=== PATIENT | female | born 1940 | race Caucasian/White ===

== ENCOUNTER 2020-02-16 16:17 | Emergency (ER) | payer MEDICARE ==
[~2020-02-16] VITALS: Ht 157.5 cm; Wt 70.4 kg
[2020-02-16] VITALS (13 sets, daily range): BP systolic 99–127; BP diastolic 40–69
--- NOTE | 2020-02-16 16:55 | PHYS DOC ---
Past History Past Medical History: Anemia, Arthritis, CHF, CVA, GI Bleed, Heart Disease, TIA (JOAO SIEGEL DO) Adult General Chief Complaint Chief Complaint: ABNORMAL LABS HPI HPI Patient is a 80-year-old female who presents for abnormal labs. Patient has kn own history of GI bleeding, currently on Eliquis for lower extremity DVT. Nonetheless, saw her primary care physician earlier today and had labs drawn as she has had episodes of GI bleed in the past with most recent EGD/colonoscopy with surgical upper endoscopy performed approximately 1 month ago. She reports having numerous blood transfusions. Nonetheless, patient's hemoglobin today when drawn at 12 PM was 5.3. This obviously concerned outpatient provider and patient was contacted, notified of his results and told to proceed directly to our ER for evaluation and intervention. Patient feels weak, mildly lightheaded, and is more pale than usual. She is not positive what her blood type is but she is amenable to blood transfusion at this time (JOAO SIEGEL DO) Review of Systems Review of Systems Fourteen body systems of review of systems have been reviewed. See HPI for pertinent positives and negative responses, other craig all other systems are negative, non-pertinent or non-contributory (JOAO SIEGEL DO) Physical Exam Physical Exam Constitutional: Well developed, well nourished, no acute distress, non-toxic appearance. HENT: Normocephalic, atraumatic, bilateral external ears normal, oropharynx moist, no oral exudates, nose normal. Eyes: PERRLA, EOMI, conjunctiva normal, no discharge. Neck: Normal range of motion, no tenderness, supple, no stridor. Cardiovascular: Heart rate regular, sinus rhythm, no murmurs rubs or gallops Lungs & Thorax: Bilateral breath sounds clear to auscultation Abdomen: Bowel sounds normal, soft, no tenderness, no masses, no pulsatile masses. Nonsurgical abdomen, no peritoneal signs Skin: Cool, dry, no erythema, no rash. Pale Back: No tenderness, no CVA tenderness. Extremities: No tenderness, no cyanosis, no clubbing, ROM intact, no edema. Neurologic: Alert and oriented X 3, grossly normal motor & sensory function, no focal deficits noted. Psychologic: Affect normal, judgement normal, mood normal. (JOAO SIEGEL DO) Current Patient Data Lab Results Laboratory Tests Test 11/12/20 17:12 White Blood Count 5.4 x10^3/uL (4.0-11.0) Red Blood Count 1.94 x10^6/uL (3.50-5.40) Hemoglobin 6.1 g/dL (12.0-15.5) Hematocrit 20.2 % (36.0-47.0) Mean Corpuscular Volume 104 fL (79-100) Mean Corpuscular Hemoglobin 31 pg (25-35) Mean Corpuscular Hemoglobin Concent 30 g/dL (31-37) Red Cell Distribution Width 21.4 % (11.5-14.5) Platelet Count 225 x10^3/uL (140-400) (JOAO SIEGEL DO) EKG EKG [] (JOAO SIEGEL DO) Radiology/Procedures Radiology/Procedures [] (JOAO SIEGEL DO) Heart Score Risk Factors: Risk Factors: DM, Current or recent (<one month) smoker, HTN, HLP, family history of CAD, obesity. Risk Scores: Risk Factors: DM, Current or recent (<one month) smoker, HTN, HLP, family hi story of CAD, obesity. (JOAO SIEGEL DO) Course & Med Decision Making Course & Med Decision Making Pertinent Labs and Imaging studies reviewed. (See chart for details) [] (JOAO SIEGEL DO) Course & Med Decision Making I performed a rectal exam and there was no obvious bleeding. Results pending on the stool occult. Blood has been ordered for the patient. If she does not have active bleeding she would prefer to go home. I believe this is reasonable since she has close follow-up. We will see what happens. The patient's stool occult was negative. She has gotten 1 unit of blood. She would prefer to go home. I believe this is reasonable with close follow-up and repeat labs tomorr ow. Patient stable for discharge at this time. If any new symptoms or other concerning symptoms develop, the patient will return to the emergency room. (ARTHUR IZQUIERDO DO) Dragon Disclaimer Dragon Disclaimer This electronic medical record was generated, in whole or in part, using a voice recognition dictation system. (JOAO SIEGEL DO) Departure Departure: Impression: Primary Impression: Anemia Disposition: 01 DC HOME SELF CARE/HOMELESS Condition: IMPROVED Referrals: JANET PARDO MD (PCP) Patient Instructions: Iron Deficiency Anemia JOAO SIEGEL DO Feb 16, 2020 16:55 ARTHUR IZQUIERDO DO Feb 16, 2020 18:54
[2020-02-16] MEDS ORDERED: ACETAMINOPHEN 325 MG TABLET PO PRN (17:00)
[2020-02-16 17:28] LABS: HEMATOCRIT 20.2 % (36.0-47.0); RED BLOOD COUNT 1.94 x10^6/uL (3.50-5.40); RED CELL DISTRIBUTION WIDTH 21.4 % (11.5-14.5); WHITE BLOOD COUNT 5.4 x10^3/uL (4.0-11.0)
[2020-02-16 17:30] LABS: HEMOGLOBIN 6.1 g/dL (12.0-15.5)
[2020-02-16 20:14] LABS: FECAL OB PT NEGATIVE (NEG)
== END 2020-02-16 23:30 | disposition home or self-care (01) ==
LOC: ER 16:17
DX: D64.9 Anemia, unspecified (principal); M19.90 Unspecified osteoarthritis, unspecified site; I50.9 Heart failure, unspecified; Z86.73 Personal history of transient ischemic attack (TIA), and cerebral infarction without residual deficits; Z86.2 Personal history of diseases of the blood and blood-forming organs and certain disorders involving the immune mechanism; Z79.01 Long term (current) use of anticoagulants
CPT/HCPCS: 36415; 36430; 82274; 85027; 86850; 86900; 86901; 86920; 99285; P9016

== ENCOUNTER 2021-08-10 17:12 | Inpatient (IN) | payer MEDICARE, OTHER ==
[~2021-08-10] VITALS: Ht 157.5 cm; Wt 70.1 kg
[2021-08-10] MEDS ORDERED: ONDANSETRON PF 4 MG/2 ML VIAL. ONE (17:59)
[2021-08-10] MEDS ORDERED: ONDANSETRON PF 4 MG/2 ML VIAL. IVP ONE (18:45)
[2021-08-10 18:55] LABS: GASTRIC OB PAT POSITIVE (NEG)
[2021-08-10 19:13] LABS: INFLUENZA A PATIENT NEGATIVE (NEGATIVE); INFLUENZA B PATIENT NEGATIVE (NEGATIVE)
--- NOTE | 2021-08-10 19:44 | PHYS DOC ---
Past History Past Medical History: Anemia, Arthritis, CHF, CVA, GI Bleed, Heart Disease, TIA Additional Past Medical Histor: RA,OSTEOARTHRITIS L HIP,SLEEP APNEA,ANTIPHOSPHOLIPID SYN,MITRAL VALV,GIble (TAMMIE MURPHY APRN) Past Surgical History: No Surgical History (TAMMIE MURPHY APRN) Alcohol Use: None (TAMMIE MURPHY APRN) General Adult EDM: Chief Complaint: ABNORMAL LABS HPI: HPI: Patient is a 81-year-old female who presents with abnormal labs. Patient reports fatigue for the last 2 weeks. Patient states that she has been vomiting blood today and decrease in her appetite . Patient had a blood draw earlier and hemoglobin was 6.0. Patient has a history of GI bleed. Patient is also currently on Eliquis for portal vein thrombosis. Patient had to have a blood transfusion in the past. Patient is normally seen by GI doctors at [facility]. History of CHF, hypertension, hyperlipidemia, anemia, GI bleed. (TAMMIE MURPHY APRN) Review of Systems: Review of Systems: ROS At least 10 ROS systems have been reviewed and are negative except as documented in the HPI. General: Negative except as outlined in HPI above. Skin: Negative except as outlined in HPI above. HEENT: Negative except as outlined in HPI above. Neck: Negative except as outlined in HPI above. Respiratory: Negative except as outlined in HPI above.. Cardiovascular: Negative except as outlined in HPI above. Abdomen: Negative except as outlined in HPI above. : Negative except as outlined in HPI above. Back/MSK: Negative except as outlined in HPI above. Neuro: Negative except as outlined in HPI above. Psych: Negative except as outlined in HPI above. (TAMMIE MURPHY APRN) Current Medications: Current Meds: Current Medications Medications (Trade) Dose Ordered Sig/Татьяна Start Time Stop Time Status Last Admin Dose Admin Ondansetron HCl (Zofran) 4 mg 1X ONCE 08/10/21 18:45 08/10/21 18:46 DC 08/10/21 18:45 4 MG (TAMMIE MURPHY APRN) Allergies: Allergies: Allergies Coded Allergies Type Severity Reaction Last Updated Verified Penicillins Allergy Unknown 02/16/20 Yes Sulfa (Sulfonamide Antibiotics) Allergy Unknown 02/16/20 Yes hydroxychloroquine Allergy Unknown 02/16/20 Yes (TAMMIE MURPHY APRN) Physical Exam: PE: Constitutional: Well developed, well nourished, no acute distress, non-toxic appearance. [] HENT: Normocephalic, atraumatic, bilateral external ears normal, oropharynx moist, no oral exudates, nose normal. [] Eyes: PERRLA, EOMI, conjunctiva normal, no discharge. [] Neck: Normal range of motion, no tenderness, supple, no stridor. [] Cardiovascular:Heart rate regular rhythm, no murmur [] Lungs & Thorax: Bilateral breath sounds clear to auscultation [] Abdomen: Bowel sounds normal, soft, no tenderness, no masses, no pulsatile masses. [] Skin: Warm, dry, no erythema, no rash. [] Back: No tenderness, no CVA tenderness. [] Extremities: No tenderness, no cyanosis, no clubbing, ROM intact, no edema. [] Neurologic: Alert and oriented X 3, normal motor function, normal sensory function, no focal deficits noted. [] Psychologic: Affect normal, judgement normal, mood normal. [] (TAMMIE MURPHY APRN) Current Patient Data: Labs: Laboratory Tests Test 08/10/21 18:00 Gastric Fluid Occult Blood Positive (NEG) Vital Signs: Vital Signs Date Time Temp Pulse Resp B/P (MAP) Pulse Ox O2 Delivery O2 Flow Rate FiO2 08/10/21 17:12 98.4 109 24 124/68 (86) 82 Room Air (TAMMIE MURPHY APRN) EKG: EKG: [] (TAMMIE MURPHY APRN) Radiology/Procedures: Radiology/Procedures: [] (TAMMIE MURPHY APRN) Heart Score: C/O Chest Pain: No Risk Factors: Risk Factors: DM, Current or recent (<one month) smoker, HTN, HLP, family history of CAD, obesity. Risk Scores: Score 0 - 3: 2.5% MACE over next 6 weeks - Discharge Home Score 4 - 6: 20.3% MACE over next 6 weeks - Admit for Clinical Observation Score 7 - 10: 72.7% MACE over next 6 weeks - Early Invasive Strategies (TAMMIE MURPHY APRN) Course & Med Decision Making: Course & Med Decision Making Pertinent Labs and Imaging studies reviewed. (See chart for details) [] 81-year-old female presents with abnormal labs. Patient's had fatigue, decrease in appetite the last 2 weeks. Patient started vomiting blood this morning. Patient is currently on Eliquis for portal vein thrombosis. Patient GI doctor is through [facility]. Patient stating that she does not want to be transferred to [facility]. Patient does not want any testing. Patient is only wanting to get blood transfusion for treatment. Patient is a DNR. Hematocrit 21.7, hemoglobin of 6.8, creatinine 2.1, gastric occult blood positive Patient given Protonix and 2 units started. Eliquis will be stopped. Spoke with Dr. Dixon who is going to be accepting patient for GI bleed and nausea and vomiting. (TAMMIE MURPHY APRN) Dragon Disclaimer: Dragon Disclaimer: This electronic medical record was generated, in whole or in part, using a voice recognition dictation system. (TAMMIE MURPHY APRN) Attending Co-Sign The patient was seen and interviewed as well as examined at the bedside. The chart was reviewed. The case was discussed. Agree with the plan of care. (ARTHUR IZQUIERDO DO) Departure Departure: Impression: Primary Impression: GI bleed Qualified Codes: K92.2 - Gastrointestinal hemorrhage, unspecified Additional Impression: Vomiting Disposition: ADMITTED INPATIENT Admitting Physician: Mamadou Elizondo (TAMMIE MURPHY APRN) Condition: STABLE Referrals: JANET PARDO MD (PCP) TAMMIE MURPHY APRN August 10, 2021 19:44 ARTHUR IZQUIERDO DO August 11, 2021 05:58
--- NOTE | 2021-08-10 19:50 | RAD ---
Exam: Chest one view INDICATION: Shortness of breath, pain TECHNIQUE: Frontal view of the chest Comparisons: 09/26/2020 FINDINGS: Heart size is at the upper limits of normal. Pulmonary vessels are within normal limits. Stable calci fied lymph nodes noted The lung and pleural spaces are clear. IMPRESSION: No acute cardiopulmonary process. Electronically signed by: Indu Vale MD (08/10/2021 7:48 PM) [place]
[2021-08-10] MEDS ORDERED: PANTOPRAZOLE IV 80 MG in IV NORMAL SALINE 100ML 100 ML IV ONE (20:00)
--- NOTE | 2021-08-10 20:57 | NUR ---
The patient, STEVEN LOVE, 81 y/o, F admitted by STACEY MOSLEY MD, was given written information regarding hospital policies, unit procedures and contact persons. Valuables were checked and logged. Call light at bedside.
[2021-08-10 21:30] LABS: RED BLOOD COUNT 2.25 x10^6/uL (3.50-5.40); WHITE BLOOD COUNT 13.7 x10^3/uL (4.0-11.0)
[2021-08-10 21:31] LABS: BASO # 0.1 x10^3/uL (0.0-0.2); BASO % 1 % (0-3); EOS # 0.2 x10^3/uL (0.0-0.7); EOS % 1 % (0-3); HEMATOCRIT 21.7 % (36.0-47.0); HEMOGLOBIN 6.8 g/dL (12.0-15.5); LYMPH # 0.9 x10^3/uL (1.0-4.8); LYMPH % 6 % (24-48); MEAN CORPUSCULAR HEMOGLOBIN 30 pg (25-35); MEAN CORPUSCULAR HGB CONC 32 g/dL (31-37); MEAN CORPUSCULAR VOLUME 96 fL (79-100); MONO # 1.5 x10^3/uL (0.0-1.1); MONO % 11 % (0-9); NEUT % 81 % (31-73); PLATELET COUNT 180 x10^3/uL (140-400); RED CELL DISTRIBUTION WIDTH 18.4 % (11.5-14.5)
[2021-08-10 21:37] LABS: ALBUMIN 2.8 g/dL (3.4-5.0); ALBUMIN/GLOBULIN RATIO 0.8 (1.0-1.7); CREATININE 2.1 mg/dL (0.6-1.0); GFR 22.5; POTASSIUM 4.4 mmol/L (3.5-5.1); TOTAL BILIRUBIN 0.5 mg/dL (0.2-1.0); TOTAL PROTEIN 6.3 g/dL (6.4-8.2)
[2021-08-10 22:17] VITALS: BP 108/68
[2021-08-10 22:49] VITALS: BP 97/62
[2021-08-11] VITALS (11 sets, daily range): BP systolic 73–106; BP diastolic 47–65
[2021-08-11] MEDS ORDERED: LIDO1ADH63 TP (02:00)
[2021-08-11] MEDS ORDERED: HYDR-2769 PO (02:00)
[2021-08-11] MEDS ORDERED: TOFA11TA PO (02:00)
[2021-08-11] MEDS ORDERED: CRESTOR10 MG PO (02:00)
[2021-08-11] MEDS ORDERED: LACT1TAB18 PO (02:00)
[2021-08-11] MEDS ORDERED: FENT1PAT21 TD (02:00)
[2021-08-11] MEDS ORDERED: GABA600T7 PO (02:00)
[2021-08-11] MEDS ORDERED: PANT40TA3 PO (02:00)
[2021-08-11] MEDS ORDERED: PROP15DR40 EACHEYE (02:00)
[2021-08-11] MEDS ORDERED: APIX2.5T PO (02:00)
[2021-08-11] MEDS ORDERED: DOCU-109 PO (02:00)
[2021-08-11] MEDS ORDERED: LEFL20TA PO (02:00)
[2021-08-11] MEDS ORDERED: LISI20TA18 PO (02:00)
[2021-08-11] MEDS ORDERED: DULO30CA2 PO (02:00)
[2021-08-11] MEDS ORDERED: ONDA4TAB12 PO (02:00)
[2021-08-11] MEDS ORDERED: TRAM50TA PO (02:00)
[2021-08-11] MEDS ORDERED: PANTOPRAZOLE IV 40 MG VIAL. IVP ONE (04:00)
[2021-08-11 07:33] LABS: HEMOGLOBIN 9.2 g/dL (12.0-15.5)
[2021-08-11] MEDS ORDERED: LIDOCAINE (700MG/PATCH) PATCH. TP PRN (09:30)
[2021-08-11] MEDS ORDERED: DOCUSATE SODIUM 100 MG CAPSULE PO PRN (09:30)
[2021-08-11] MEDS ORDERED: ONDANSETRON ODT 4 MG TAB.RAPDIS PO PRN (09:30)
--- NOTE | 2021-08-11 10:20 | HP ---
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 She also had some nausea and anorexia. She was seen by her primary care physician, was concerned about the amount of pain medication she is getting for her back pain that has been severe and such that she was unable even to walk. Yesterday she stated that she started vomiting blood and her lab work was checked and showed that her hemoglobin was down to 6.8, hematocrit 21, and therefore, the patient was transferred to [facility] Emergency Room where a repeat lab work there confirmed that she is anemic and her lab work showed that she has also chronic kidney disease versus acute on chronic kidney disease. Her prothrombin time and INR are normal. Her gastric occult blood was positive and her coronavirus by rapid antigen testing was negative and influenza A and B were negative. The patient was admitted with acute blood loss anemia and was to be transfused 1 unit and to monitor her H and H and decide the further management accordingly. PAST MEDICAL HISTORY: Significant for fibromyalgia, rheumatoid arthritis, chronic pain syndrome. 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 She has lumbar radiculopathy, portal vein thrombosis, generalized osteoarthritis, essential primary hypertension, obstructive sleep apnea, major depressive disorder, antiphospholipid syndrome, drug-induced constipation, seasonal allergic rhinitis, dry eye syndrome, bilateral lacrimal glands. She has nicotine dependence, nonexudative age-related macular degeneration, astigmatism. She is also known to have chronic diastolic congestive heart failure, peripheral vascular disease, non-rheumatic mitral valve insufficiency, chronic kidney disease, stenosis of the carotid artery, previous episode of gastrointestinal hemorrhage, enterocolitis due to Clostridium difficile, recurrent and iron deficiency anemia secondary to blood loss. PAST SURGICAL HISTORY: Significant for bilateral total hip arthroplasty and total abdominal hysterectomy, bilateral salpingo-oophorectomy. ALLERGIES: SHE IS ALLERGIC TO SULFA DRUGS, HYDROXYCHLOROQUINE, AND PENICILLIN. MEDICATIONS: She is currently on the following medications: She is on apixaban 2.5 mg twice a day, lisinopril 20 mg once a day, fentanyl, hydrocodone/APAP 10/325 one tablet every 6 hours, tramadol 50 mg every 6 hours as needed, gabapentin 600 mg once a day, duloxetine 30 mg daily, Systane 1 drop to both eyes twice a day, Lactobacillus acidophilus 1 capsule daily. She is on Colace 200 mg daily, ondansetron 4 mg every 6 hours, Protonix 40 mg b.i.d., Lidoderm patch apply topically on for 12 hours, off for 12 hours, Leflunomide or Arava 10 mg once a day and Xeljanz 11 mg 1 tablet once a day and Crestor 10 mg at bedtime. FAMILY HISTORY: Noncontributory. SOCIAL HISTORY: She is a resident at [facility]. She is apparently an ex-smoker. Does not drink alcohol or use any recreational drugs. REVIEW OF SYSTEMS: As per history of present illness. PHYSICAL EXAMINATION: GENERAL: On arrival to the Emergency Room, the patient was pale, but not jaundiced or cyanosed, no lymphadenopathy, no thyromegaly, no jugular venous distention. No limb edema. VITAL SIGNS: Her heart rate was 109, blood pressure is 124/68, temperature was 98.4, respiratory rate 24, and oxygen saturation was 82% on room air that has improved to 99% on 3 liters of oxygen. HEAD, EYES, EARS, NOSE, AND THROAT: Normocephalic, atraumatic. NECK: Supple. HEART: Showed normal first and second heart sounds. She has a harsh systolic murmur best heard in the second right intercostal space. No gallop or rub. CHEST: Shows central trachea, equal bilateral chest expansion, air entry, vesicular breath sounds. I could not appreciate any crepitation or rhonchi. ABDOMEN: Distended, soft, nontender. NEUROLOGIC: She was awake, alert, responding appropriately. All cranial nerves intact. She moves extremities without difficulty. According to her, she ambulates with a walker. LABORATORY DATA: On arrival showed that her white cell count was 13,700, hemoglobin 6.8, hematocrit 21.7, MCV was 96 and platelet count of 180,000 with manual differential showed 81% polymorphs, 6% lymphocytes and 11% monocytes. Her serum sodium was 134, potassium 4.4, chloride 95, bicarbonate 28, anion gap of 11, BUN 39, creatinine 2.1. Estimated GFR was 22 mL per minute. Her glucose 130, calcium was 9. Total bilirubin, AST, ALT, alkaline phosphatase were normal. Total protein 6.3, albumin was 2.8. Her prothrombin time was 11.2, INR 1.1. Her gastric occult blood was positive. Her influenza A and B as well as coronavirus by rapid antigen testing was negative. Her chest x-ray showed the heart size at the upper limit of normal. Pulmonary vessels are within normal limits. Stable calcified lymph nodes noted. The lungs and pleural spaces are clear. ASSESSMENT AND PLAN: The patient was admitted with: 1. Acute hypoxic respiratory failure. 2. Blood loss anemia. 3. Chronic kidney disease. The patient has a multitude of other medical problems including: A. Fibromyalgia. B. Rheumatoid arthritis. C. Chronic pain syndrome. D. Lumbar radiculopathy. E. Portal vein thrombosis. F. Antiphospholipid syndrome. G. Essential primary hypertension, however, the patient is hypotensive. H. Obstructive sleep apnea. My plan is at least for the time being is I held her apixaban, lisinopril, fentanyl, hydrocodone and tramadol as well as the Protonix. I will continue with IV Protonix. We will start patient on a clear liquid diet and advance as tolerated. We will monitor her H and H and her kidney function and decide on further management accordingly. GONZALO DR: Wallace TID: [id number]
--- NOTE | 2021-08-11 10:49 | NUR ---
Nursing note PT in bed, verbalize no pain, discomfort or shortness of breath. Morning assessments done, PT verbalized no nausea or vomiting. PT assessed by doctor and PT stated no history or GI bleed or cardiac problems. Medications restarted by . PT in bed, Meal tray handed to PT. Bed low, call light within reach. Will continue to monitor.
[2021-08-11] MEDS: GABAPENTIN 300 MG CAPSULE. PO SCH ×2 (14:00→21:09)
[2021-08-11 15:28] LABS: CALCIUM 8.4 mg/dL (8.5-10.1); CREATININE 1.6 mg/dL (0.6-1.0); GFR 30.9; POTASSIUM 4.6 mmol/L (3.5-5.1)
[2021-08-11] MEDS ORDERED: DULoxetine HCL 30 MG CAPSULE.DR PO SCH (16:00)
--- NOTE | 2021-08-11 18:03 | NUR ---
Nursing note PT in bed, verbalized no pain, medications administered per doctors orders. PT verbalized no other needs, bed low, call light within reach.
--- NOTE | 2021-08-11 20:25 | PN ---
DATE: 08/11/2021 SUBJECTIVE: The patient is resting, slightly propped up in bed, in no apparent respiratory distress. She is awake, alert. On questioning her, denied any complaint, in particular, denied any chest pain, shortness of breath. OBJECTIVE: GENERAL: On examining her; however, she looked pale, no jaundice, cyanosis or thyromegaly. No jugular venous distention. No limb edema. VITAL SIGNS: Her heart rate was 98, blood pressure was 73/47, temperature was 97.9, respiratory rate was 16 and oxygen saturation was 92%. In fact, she was only 87% on room air, that has improved to 95% on 3 liters of oxygen. OBJECTIVE: HEAD, EYES, EARS, NOSE, AND THROAT: Normocephalic, atraumatic. NECK: Supple. HEART: Showed normal first and second heart sounds. No gallop or murmur. CHEST: Shows central trachea, equal bilateral chest expansion, air entry, vesicular breath sounds. No crepitation or rhonchi. ABDOMEN: Distended, soft, nontender. NEUROLOGIC: She was awake, alert, responding appropriately. All cranial nerves intact. She moves extremities without difficulty. Her intake and output are incompletely recorded. LABORATORY DATA: This morning showed that her hemoglobin was 9.2, platelets are 110. ASSESSMENT: 1. Acute hypoxic respiratory failure, likely due to underlying chronic obstructive pulmonary disease and chronic diastolic congestive heart failure and she is requiring 3 liters of oxygen. 2. Acute blood loss anemia, likely upper gastrointestinal bleed. I am not sure where she is bleeding from. She likely has esophageal varices or hypertensive gastropathy and perhaps peptic ulcer disease for which we started her on IV Protonix. 3. Antiphospholipid syndrome with portal vein thrombosis. 4. Obstructive sleep apnea. 5. Mitral valve disease. PLAN: My plan is to hold all the apixaban as well as her all narcotics. Advance diet as tolerated. We will monitor her H and H and if the hemoglobin is 7 or less than 7, we will transfuse her. I will hold also her lisinopril as her blood pressure is borderline. SONALI/MINA DR: Wallace TID: [id number]
[2021-08-11] MEDS ORDERED: ATORVASTATIN CALCIUM 20 MG TABLET PO SCH (21:00)
[2021-08-11] MEDS: POLYVINYL ALCOHOL/POVIDONE/PF OPHTH SOLUTION DROPERETTE. OU SCH (21:09)
[2021-08-12 05:43] VITALS: BP 114/69
[2021-08-12 06:59] LABS: HEMATOCRIT 25.5 % (36.0-47.0); HEMOGLOBIN 8.3 g/dL (12.0-15.5); RED BLOOD COUNT 2.72 x10^6/uL (3.50-5.40); RED CELL DISTRIBUTION WIDTH 17.4 % (11.5-14.5); WHITE BLOOD COUNT 8.3 x10^3/uL (4.0-11.0)
[2021-08-12 07:05] LABS: ALBUMIN 2.2 g/dL (3.4-5.0); ALBUMIN/GLOBULIN RATIO 0.7 (1.0-1.7); CALCIUM 8.4 mg/dL (8.5-10.1); CREATININE 1.3 mg/dL (0.6-1.0); GFR 39.2; POTASSIUM 4.2 mmol/L (3.5-5.1); TOTAL BILIRUBIN 0.6 mg/dL (0.2-1.0); TOTAL PROTEIN 5.3 g/dL (6.4-8.2)
[2021-08-12] MEDS: POLYVINYL ALCOHOL/POVIDONE/PF OPHTH SOLUTION DROPERETTE. OU SCH (08:53)
[2021-08-12] MEDS: GABAPENTIN 300 MG CAPSULE. PO SCH (08:53)
[2021-08-12] MEDS ORDERED: NON FORMULARY ITEM (Tofacitinib Citrate (Xeljanz Xr) 11 MG) PO SCH (09:00)
[2021-08-12] MEDS ORDERED: LEFLUNOMIDE 10 MG TABLET PO SCH (09:00)
[2021-08-12] MEDS ORDERED: LACTOBACILLUS RHAMNOSUS GG 1 CAPSULE. PO SCH (09:00)
--- NOTE | 2021-08-12 09:00 | NUR ---
pt was questioned about recent covid 19 diagnosis. pt reports she was positive in July and that is why she is testing positive now. pt was taken out of isolation due to no symptoms and will notify dr. comer of the patients status.
[2021-08-12 11:04] VITALS: BP 109/71
--- NOTE | 2021-08-12 12:01 | NUR ---
report called to [facility]. transportation is in route.
--- NOTE | 2021-08-12 12:25 | NUR ---
pt's IV was discontinued, pt signed d/c paperwork. pt's ride is at bedside and pt was wheeled out to [facility] to [facility].
== END 2021-08-12 12:25 | DRG 377 ==
LOC: ER 17:12 → 1 SOUTH 20:45
PROVIDERS: ADMIT Internal Medicine; ATTEND Internal Medicine
PROC: 30233N1 Transfusion of Nonautologous Red Blood Cells into Peripheral Vein, Percutaneous Approach (ICD-10-PCS; principal; 2021-08-10)
DX: K27.4 Chronic or unspecified peptic ulcer, site unspecified, with hemorrhage (principal); J96.01 Acute respiratory failure with hypoxia; I81 Portal vein thrombosis; U07.1 COVID-19; D62 Acute posthemorrhagic anemia; D68.61 Antiphospholipid syndrome; I13.0 Hypertensive heart and chronic kidney disease with heart failure and stage 1 through stage 4 chronic kidney disease, or unspecified chronic kidney disease; I50.32 Chronic diastolic (congestive) heart failure; K76.6 Portal hypertension; E78.5 Hyperlipidemia, unspecified; G47.33 Obstructive sleep apnea (adult) (pediatric); G89.4 Chronic pain syndrome; I73.9 Peripheral vascular disease, unspecified; I85.00 Esophageal varices without bleeding; J44.9 Chronic obstructive pulmonary disease, unspecified; K31.9 Disease of stomach and duodenum, unspecified; K59.00 Constipation, unspecified; M06.9 Rheumatoid arthritis, unspecified; M16.12 Unilateral primary osteoarthritis, left hip; M54.16 Radiculopathy, lumbar region; M79.7 Fibromyalgia; N18.9 Chronic kidney disease, unspecified; Z79.01 Long term (current) use of anticoagulants; Z86.73 Personal history of transient ischemic attack (TIA), and cerebral infarction without residual deficits; Z87.891 Personal history of nicotine dependence; Z90.710 Acquired absence of both cervix and uterus; Z96.643 Presence of artificial hip joint, bilateral; F32.9 Major depressive disorder, single episode, unspecified; M19.90 Unspecified osteoarthritis, unspecified site; Z88.0 Allergy status to penicillin; Z88.2 Allergy status to sulfonamides; Z88.8 Allergy status to other drugs, medicaments and biological substances; I95.9 Hypotension, unspecified; K31.89 Other diseases of stomach and duodenum; I05.9 Rheumatic mitral valve disease, unspecified
CPT/HCPCS: 36415; 36430; 71045; 80048; 80053; 82271; 85018; 85025; 85027; 85049; 85610; 86850; 86900; 86901; 86920; 87428; 96374; C9113; J2405; P9016; U0003; 99285-25

== ENCOUNTER 2021-08-19 12:56 | Inpatient (IN) | payer MEDICARE, OTHER ==
[~2021-08-19] VITALS: Ht 157.5 cm; Wt 70.0 kg
[2021-08-19] VITALS (10 sets, daily range): BP systolic 91–131; BP diastolic 56–79
[~2021-08-19 12:56] MED LIST: APIX2.5T PO; CRESTOR10 MG PO; DOCU-109 PO; DULO30CA2 PO; FENT1PAT21 TD; GABA600T7 PO; HYDR-2769 PO; LACT1TAB18 PO; LEFL20TA PO; LIDO1ADH63 TP; LISI20TA18 PO; ONDA4TAB12 PO; PANT40TA3 PO; PROP15DR40 EACHEYE; TOFA11TA PO; TRAM50TA PO
[2021-08-19 14:27] LABS: BASO # 0.1 x10^3/uL (0.0-0.2); BASO % 1 % (0-3); EOS % 0 % (0-3); HEMATOCRIT 14.4 % (36.0-47.0); LYMPH # 0.9 x10^3/uL (1.0-4.8); LYMPH % 7 % (24-48); MEAN CORPUSCULAR HEMOGLOBIN 32 pg (25-35); MEAN CORPUSCULAR HGB CONC 32 g/dL (31-37); MEAN CORPUSCULAR VOLUME 99 fL (79-100); MONO # 0.8 x10^3/uL (0.0-1.1); MONO % 6 % (0-9); NEUT # 12.3 x10^3uL (1.8-7.7); NEUT % 87 % (31-73); PLATELET COUNT 219 x10^3/uL (140-400); RED BLOOD COUNT 1.46 x10^6/uL (3.50-5.40); RED CELL DISTRIBUTION WIDTH 20.6 % (11.5-14.5); WHITE BLOOD COUNT 14.2 x10^3/uL (4.0-11.0)
[2021-08-19 14:29] LABS: HEMOGLOBIN 4.6 g/dL (12.0-15.5)
[2021-08-19 15:00] LABS: % BANDS 2 % (0-9); % LYMPHS 18 % (24-48); % MONOS 6 % (0-10); % SEGS 74 % (35-66); NUCLEATED RBC 1; PLT ESTIMATE ADEQUATE (ADEQUATE)
[2021-08-19 15:01] LABS: ANISOCYTOSIS MOD; HYPOCHROMIA MOD
[2021-08-19 15:02] LABS: CALCIUM 8.3 mg/dL (8.5-10.1); CREATININE 1.8 mg/dL (0.6-1.0); GFR 26.9; POTASSIUM 4.2 mmol/L (3.5-5.1)
[2021-08-19 15:09] LABS: ALBUMIN 2.6 g/dL (3.4-5.0); ALBUMIN/GLOBULIN RATIO 0.9 (1.0-1.7); TOTAL BILIRUBIN 0.4 mg/dL (0.2-1.0); TOTAL PROTEIN 5.5 g/dL (6.4-8.2)
--- NOTE | 2021-08-19 15:18 | PHYS DOC ---
Past History Past Medical History: Anemia, Arthritis, CHF, CVA, GI Bleed, Heart Disease, TIA Additional Past Medical Histor: RA,OSTEOARTHRITIS L HIP,SLEEP APNEA,ANTIPHOSPHOLIPID SYN,MITRAL VALV,GIble (TAMMIE MURPHY APRN) Past Surgical History: No Surgical History (TAMMIE MURPHY APRN) Alcohol Use: None (TAMMIE MURPHY APRN) General Adult EDM: Chief Complaint: ANEMIA HPI: HPI: Patient is a 81-year-old female presents with abnormal labs. Patient was seen last week for decreased H&H, vomiting blood. Patient received a blood transfusion. Patient was seen by her PCP today and sent to the emergency room for same complaints. Labs from patient's PCP office were 4.6. patient's denying nausea/vomiting/diarrhea. No abdominal pain. No chest pain, shortness of breath, dizziness. Does have a history of GI bleed. (TAMMIE MURPHY APRN) Review of Systems: Review of Systems: ROS At least 10 ROS systems have been reviewed and are negative except as documented in the HPI. General: Negative except as outlined in HPI above. Skin: Negative except as outlined in HPI above. HEENT: Negative except as outlined in HPI above. Neck: Negative except as outlined in HPI above. Respiratory: Negative except as outlined in HPI above.. Cardiovascular: Negative except as outlined in HPI above. Abdomen: Negative except as outlined in HPI above. : Negative except as outlined in HPI above. Back/MSK: Negative except as outlined in HPI above. Neuro: Negative except as outlined in HPI above. Psych: Negative except as outlined in HPI above. (TAMMIE MURPHY APRN) Allergies: Allergies: Allergies Coded Allergies Type Severity Reaction Last Updated Verified Penicillins Allergy Unknown 08/19/21 Yes Sulfa (Sulfonamide Antibiotics) Allergy Unknown 08/19/21 Yes hydroxychloroquine Allergy Unknown 08/19/21 Yes (TAMMIE MURPHY APRN) Physical Exam: PE: Constitutional: Well developed, well nourished, no acute distress, non-toxic appearance. [] HENT: Normocephalic, atraumatic, bilateral external ears normal, oropharynx moist, no oral exudates, nose normal. [] Eyes: PERRLA, EOMI, conjunctiva normal, no discharge. [] Neck: Normal range of motion, no tenderness, supple, no stridor. [] Cardiovascular:Heart rate regular rhythm, no murmur [] Lungs & Thorax: Bilateral breath sounds clear to auscultation [] Abdomen: Bowel sounds normal, soft, no tenderness, no masses, no pulsatile masses. [] Skin: Warm, dry, no erythema, no rash. [] Back: No tenderness, no CVA tenderness. [] Extremities: No tenderness, no cyanosis, no clubbing, ROM intact, no edema. [] Neurologic: Alert and oriented X 3, normal motor function, normal sensory function, no focal deficits noted. [] Psychologic: Affect normal, judgement normal, mood normal. [] (TAMMIE MURPHY APRN) Current Patient Data: Labs: Laboratory Tests Test 08/19/21 14:00 White Blood Count 14.2 x10^3/uL (4.0-11.0) H Red Blood Count 1.46 x10^6/uL (3.50-5.40) L Hemoglobin 4.6 g/dL (12.0-15.5) *L Hematocrit 14.4 % (36.0-47.0) L Mean Corpuscular Volume 99 fL (79-100) Mean Corpuscular Hemoglobin 32 pg (25-35) Mean Corpuscular Hemoglobin Concent 32 g/dL (31-37) Red Cell Distribution Width 20.6 % (11.5-14.5) H Platelet Count 219 x10^3/uL (140-400) Neutrophils (%) (Auto) 87 % (31-73) H Lymphocytes (%) (Auto) 7 % (24-48) L Monocytes (%) (Auto) 6 % (0-9) Eosinophils (%) (Auto) 0 % (0-3) Basophils (%) (Auto) 1 % (0-3) Neutrophils # (Auto) 12.3 x10^3uL (1.8-7.7) H Lymphocytes # (Auto) 0.9 x10^3/uL (1.0-4.8) L Monocytes # (Auto) 0.8 x10^3/uL (0.0-1.1) Eosinophils # (Auto) 0.0 x10^3/uL (0.0-0.7) Basophils # (Auto) 0.1 x10^3/uL (0.0-0.2) Segmented Neutrophils % 74 % (35-66) H Band Neutrophils % 2 % (0-9) Lymphocytes % 18 % (24-48) L Monocytes % 6 % (0-10) Nucleated Red Blood Cells 1 Platelet Estimate Adequate (ADEQUATE) Hypochromasia Mod Anisocytosis Mod Vital Signs: Vital Signs Date Time Temp Pulse Resp B/P (MAP) Pulse Ox O2 Delivery O2 Flow Rate FiO2 08/19/21 13:10 98.7 103 18 88/47 (61) 97 Room Air (TAMMIE MURPHY APRN) EKG: EKG: [] (TAMMIE MURPHY APRN) Radiology/Procedures: Radiology/Procedures: [] (TAMMIE MURPHY APRN) Heart Score: C/O Chest Pain: No Risk Factors: Risk Factors: DM, Current or recent (<one month) smoker, HTN, HLP, family history of CAD, obesity. Risk Scores: Score 0 - 3: 2.5% MACE over next 6 weeks - Discharge Home Score 4 - 6: 20.3% MACE over next 6 weeks - Admit for Clinical Observation Score 7 - 10: 72.7% MACE over next 6 weeks - Early Invasive Strategies (TAMMIE MURPHY APRN) Course & Med Decision Making: Course & Med Decision Making Pertinent Labs and Imaging studies reviewed. (See chart for details) [] 81-year-old female presents with abnormal labs. Patient was seen here last week for blood transfusion. Patient is refusing all other treatment other than transfusion. Patient's hemoglobin today is 4.6. I spoke with Dr. Dixon who will be admitting patient for blood transfusion. Patient is aware of admission plan. Patient is a DNR and refusing all other evaluation to fix source of bleeding. (TAMMIE MURPHY APRN) Dragon Disclaimer: Dragon Disclaimer: This electronic medical record was generated, in whole or in part, using a voice recognition dictation system. (TAMMIE MURPHY APRN) Attending Co-Sign The patient was seen and interviewed as well as examined at the bedside. The chart was reviewed. The case was discussed. Agree with the plan of care. (ARTHUR IZQUIERDO DO) Departure Departure: Impression: Primary Impression: Acute blood loss anemia Disposition: ADMITTED INPATIENT Admitting Physician: Mamadou Elizondo (TAMMIE MURPHY APRN) Condition: STABLE Referrals: JANET PAROD MD (PCP) TAMMIE MURPHY APRN August 19, 2021 15:18 ARTHUR IZQUIERDO DO August 20, 2021 10:19
[2021-08-19] MEDS ORDERED: IV NORMAL SALINE 1,000ML 1,000 ML IV SCH (15:30)
[2021-08-19 21:17] LABS: HEMATOCRIT 18.9 % (36.0-47.0); RED CELL DISTRIBUTION WIDTH 17.8 % (11.5-14.5); WHITE BLOOD COUNT 10.9 x10^3/uL (4.0-11.0)
[2021-08-19 21:21] LABS: HEMOGLOBIN 6.3 g/dL (12.0-15.5)
[2021-08-20] MEDS ORDERED: DOCUSATE SODIUM 100 MG CAPSULE PO PRN (00:15)
[2021-08-20 01:10] LABS: HEMOGLOBIN 7.9 g/dL (12.0-15.5); RED BLOOD COUNT 2.61 x10^6/uL (3.50-5.40); WHITE BLOOD COUNT 11.1 x10^3/uL (4.0-11.0)
[2021-08-20 01:11] VITALS: BP 105/67
[2021-08-20] MEDS ORDERED: fentaNYL 100MCG/HR 1 PATCH PATCH TD SCH ×2 (05:30→08:00)
[2021-08-20] MEDS ORDERED: traMADol 50 MG TABLET PO PRN (05:30)
[2021-08-20] MEDS ORDERED: HYDROcodone/APAP 10/325 1 TAB TABLET PO PRN (05:30)
[2021-08-20] MEDS ORDERED: ONDANSETRON ODT 4 MG TAB.RAPDIS PO PRN (05:30)
[2021-08-20] MEDS ORDERED: PANTOPRAZOLE 40 MG TABLET. PO SCH ×2 (06:00→08:00)
[2021-08-20 06:27] LABS: BASO % 0 % (0-3); EOS % 1 % (0-3); HEMOGLOBIN 8.1 g/dL (12.0-15.5); LYMPH # 1.5 x10^3/uL (1.0-4.8); LYMPH % 14 % (24-48); MEAN CORPUSCULAR HEMOGLOBIN 31 pg (25-35); MEAN CORPUSCULAR HGB CONC 34 g/dL (31-37); MEAN CORPUSCULAR VOLUME 91 fL (79-100); MONO # 0.9 x10^3/uL (0.0-1.1); MONO % 8 % (0-9); NEUT # 7.9 x10^3uL (1.8-7.7); NEUT % 76 % (31-73); PLATELET COUNT 172 x10^3/uL (140-400); RED BLOOD COUNT 2.64 x10^6/uL (3.50-5.40); RED CELL DISTRIBUTION WIDTH 16.7 % (11.5-14.5); WHITE BLOOD COUNT 10.4 x10^3/uL (4.0-11.0)
[2021-08-20 06:29] VITALS: BP 113/70
[2021-08-20 06:42] LABS: ALBUMIN 2.5 g/dL (3.4-5.0); ALBUMIN/GLOBULIN RATIO 0.8 (1.0-1.7); CALCIUM 8.3 mg/dL (8.5-10.1); CREATININE 1.5 mg/dL (0.6-1.0); GFR 33.2; POTASSIUM 3.6 mmol/L (3.5-5.1); TOTAL BILIRUBIN 0.5 mg/dL (0.2-1.0); TOTAL PROTEIN 5.5 g/dL (6.4-8.2)
[2021-08-20] MEDS: GABAPENTIN 300 MG CAPSULE. PO SCH ×2 (08:50→14:18)
[2021-08-20] MEDS ORDERED: LACTOBACILLUS RHAMNOSUS GG 1 CAPSULE. PO SCH (09:00)
[2021-08-20] MEDS ORDERED: POLYVINYL ALCOHOL 1.4% OPHTH SOLUTION 15ML BOTTLE. OU SCH (09:00)
[2021-08-20 11:09] VITALS: BP 116/75
[2021-08-20] MEDS ORDERED: DULoxetine HCL 30 MG CAPSULE.DR PO SCH (16:00)
[2021-08-20] MEDS ORDERED: ATORVASTATIN CALCIUM 20 MG TABLET PO SCH (21:00)
--- NOTE | 2021-08-20 21:32 | HP ---
DATE OF SERVICE: 08/20/2021 ADMIT DATE: 08/19/2021 HISTORY OF PRESENT ILLNESS: The patient is an 81-year-old female patient who yet again came to the Emergency Room of [facility] with abnormal labs. She was seen last week for blood loss anemia. At that time, she received blood transfusion and in fact I spoke with Dr. Mason about this and need to continue with Xarelto, but stated that she has mesenteric vein thrombosis and that she should be in life long anticoagulation and therefore she was to receive 2 units of packed RBC. She was sent back to [facility] only to be sent back again to the Emergency Room via primary care physician with severe anemia with hemoglobin of 4.6, although the patient denied any nausea, vomiting, diarrhea, hematemesis, melena or hematochezia. Denied any abdominal pain. Denied any chest pain, shortness of breath, dizziness. She was evaluated in the Emergency Room and repeat lab work again confirmed that her hemoglobin was only 4.6, hematocrit 14.4 and therefore the patient was admitted with the plan to transfuse 2 units of packed RBCs and to observe her, I held her Eliquis and I did actually contact [facility] in [place], [place], to get the records from there as she was admitted there in 2017 with clot in her abdomen according to description and since then she has been on the Eliquis. When on questioning her, patient denied any complaints. Her lab work on arrival to the Emergency Room showed hemoglobin of 4.6, hematocrit 14.4 with the white cell count 14,000 and platelets 219,000. PAST MEDICAL HISTORY: Significant for rheumatoid arthritis, fibromyalgia, chronic pain syndrome. 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 She has lumbar radiculopathy, portal vein thrombosis, generalized osteoarthritis, essential primary hypertension, obstructive sleep apnea, major depressive disorder, antiphospholipid syndrome, drug-induced constipation, seasonal allergic rhinitis, dry eye syndrome, bilateral lacrimal glands. She has nicotine dependence, nonexudative, age-related macular degeneration, stigmatism. She was also noted to have chronic diastolic congestive heart failure; peripheral vascular disease; non-rheumatic mitral valve insufficiency; chronic kidney disease; stenosis of the carotid arteries; previous episodes of gastrointestinal hemorrhage; enterocolitis due to Clostridium difficile, recurrent; iron-deficiency anemia secondary to blood loss. PAST SURGICAL HISTORY: Significant for bilateral total hip arthroplasty and total abdominal hysterectomy, and bilateral salpingo-oophorectomy. ALLERGIES: SHE IS ALLERGIC TO SULFA DRUGS, HYDROXYCHLOROQUINE, AND PENICILLIN. MEDICATIONS: She is currently on the following medications: She is on apixaban 2.5 mg twice a day, lisinopril 20 mg once a day. She is on Fentanyl patch 100 mcg topically every 72 hours, atorvastatin 40 mg at bedtime, duloxetine 30 mg daily, artificial tears 1 drop to both eyes twice a day, Lactobacillus rhamnosus 1 capsule daily, gabapentin 600 mg 3 times a day, Protonix 40 mg twice a day, tramadol 50 mg every 6 hours, ondansetron 4 mg every 6 hours, hydrocodone/APAP 10/325 one tablet every 6 hours, Colace 200 mg daily. FAMILY HISTORY: Noncontributory. SOCIAL HISTORY: She is a resident at [facility]. She is apparently an ex-smoker. Does not drink alcohol or use any recreational drugs. She moved here from [place], [place] about 2 years ago. REVIEW OF SYSTEMS: As per history of present illness. PHYSICAL EXAMINATION: GENERAL: On arrival to the Emergency Room, she was obviously pale, but not jaundiced or cyanosed, no lymphadenopathy, no thyromegaly, no jugular venous distention. No limb edema. VITAL SIGNS: Her heart rate was 79, blood pressure is 105/67, temperature was 97.9, respiratory rate was 17, and oxygen saturation was 96% on 1 liter of oxygen. HEAD, EYES, EARS, NOSE, AND THROAT: Normocephalic, atraumatic. NECK: Supple. HEART: Showed normal first and second heart sounds. No gallop, rub or murmur. CHEST: Clear to auscultation. No crepitation or rhonchi. ABDOMEN: Distended, soft, nontender. NEUROLOGIC: She was grossly intact. LABORATORY WORK: On arrival showed that white cell count was 14,200, hemoglobin 4.6, hematocrit 14.4, MCV was 99 and platelet count of 219,000 with normal manual differential. Her chemistry showed serum sodium 134, potassium 4.2, chloride 96, bicarbonate 29, anion gap of 9, BUN 42, creatinine 1.8. Estimated GFR was 27 mL per minute. Her glucose 124, calcium was 8.3. Total bilirubin, AST, ALT, alkaline phosphatase were normal. Total protein 5.5, albumin was 2.6. Her prothrombin time INR was normal. ASSESSMENT AND PLAN: The patient was admitted with type and cross 2 unit packed RBCs that would be transfused. I have contacted [facility] in [place], [place] to find the actual record to make sure that there is no reason for her to continue on anticoagulation if feasible. The patient is DNR and has been refused all other evaluation to find out the source of bleeding or fix it. SONALI/JOHN/ARMIN DR: Wallace TID: [id number]
--- NOTE | 2021-08-21 13:56 | PN ---
DATE: 08/20/2021 SUBJECTIVE: The patient is resting, slightly hooked up in bed, in no apparent respiratory distress. She is feeling much better after she received 2 units of packed RBCs. She denied any chest pain, shortness of breath. Denied any nausea, vomiting, diarrhea or constipation. Denied any hematemesis, melena or hematochezia. Denied any abdominal pain. PHYSICAL EXAMINATION: GENERAL: When I examined her, she looked pale, not jaundiced, cyanosis or thyromegaly. No jugular venous distention. No limb edema. VITAL SIGNS: Her heart rate was 85, blood pressure was 116/75, temperature was 98.2, respiratory rate was 18 and oxygen saturation was 93% on room air. HEAD, EYES, EARS, NOSE AND THROAT: Normocephalic, atraumatic. NECK: Supple. HEART: Normal first and second heart sounds. No gallop, rub or murmur. CHEST: Clear to auscultation, no crepitation or rhonchi. ABDOMEN: Distended, soft, nontender. NEUROLOGIC: She was grossly intact. LABORATORY DATA: This morning showed a white cell count of 7.4, hemoglobin 8.1, hematocrit 24, MCV 91, and platelet count of 172,000. Her chemistry showed a serum sodium 137, potassium 3.6, chloride 99, bicarbonate 32, anion gap of 6, BUN 38, creatinine 1.5. Estimated GFR was 33 mL per minute. Her glucose was 81, calcium was 8.3. Total bilirubin, AST, ALT, alkaline phosphatase were normal. Total protein 5.5, albumin was 2.5. ASSESSMENT: Recurrent episode of GI bleed with severe anemia, hemoglobin of 4.6, hematocrit of 14.4, status post 2 units of packed RBCs. The patient is known to have chronic kidney disease. Historically, she has portal vein thrombosis and antiphospholipid syndrome, rheumatoid arthritis, hypertension. I did contact the [facility] in [place] and apparently the patient has an extensive acute mesenteric, splenic and portal vein thrombosis. 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 The exact identity of the underlying malignant process is unknown. PLAN: My plan is obviously to ____. SONALI/MILAN/ARMIN DR: Wallace TID: [id number]
--- NOTE | 2021-09-03 17:25 | EKG ---
[address] [address] Test Date: 2021-08-19 Test Time: 13:37:05 Pat Name: STEVEN LOVE Department: Room: 124 A Gender: F Hand [employer] Helper: : 1940 Requested By: TAMMIE MURPHY Order Number: [id number] Reading MD: Measurements Intervals [place] Rate: 91 P: 26 PA: 176 QRS: -9 QRSD: 91 T: 107 QT: 362 QTc: 446 Interpretive Statements Sinus rhythm LVH with secondary repolarization abnormality No previous ECG available for comparison
== END 2021-08-20 14:52 | DRG 377 ==
LOC: ER 12:56 → ER HOLD 15:21 → 1 SOUTH 16:30
PROVIDERS: ADMIT Internal Medicine; ATTEND Internal Medicine
PROC: 30233N1 Transfusion of Nonautologous Red Blood Cells into Peripheral Vein, Percutaneous Approach (ICD-10-PCS; principal; 2021-08-19)
DX: K92.2 Gastrointestinal hemorrhage, unspecified (principal); E43 Unspecified severe protein-calorie malnutrition; D62 Acute posthemorrhagic anemia; D68.61 Antiphospholipid syndrome; I13.0 Hypertensive heart and chronic kidney disease with heart failure and stage 1 through stage 4 chronic kidney disease, or unspecified chronic kidney disease; I50.32 Chronic diastolic (congestive) heart failure; G89.4 Chronic pain syndrome; I34.0 Nonrheumatic mitral (valve) insufficiency; I73.9 Peripheral vascular disease, unspecified; M06.9 Rheumatoid arthritis, unspecified; M16.12 Unilateral primary osteoarthritis, left hip; M79.7 Fibromyalgia; N18.9 Chronic kidney disease, unspecified; Z86.73 Personal history of transient ischemic attack (TIA), and cerebral infarction without residual deficits; Z87.891 Personal history of nicotine dependence; Z90.710 Acquired absence of both cervix and uterus; Z96.643 Presence of artificial hip joint, bilateral; F32.9 Major depressive disorder, single episode, unspecified; Z66 Do not resuscitate; Z88.0 Allergy status to penicillin; Z88.2 Allergy status to sulfonamides; Z88.8 Allergy status to other drugs, medicaments and biological substances
CPT/HCPCS: 36415; 36430; 80053; 82728; 83540; 83550; 85007; 85025; 85027; 85610; 86850; 86900; 86901; 86920; 93005; P9016; 97116; 97535; 99285-25; J7030